=== PATIENT | male | born 2000 ===

== ENCOUNTER 2024-02-18 14:23 | Inpatient (IN) | payer MEDICAID ==
[~2024-02-18] VITALS: Ht 188 cm; Wt 123.0 kg
[2024-02-18] MEDS: SODIUM CHLORIDE 0.9% 2,000 ML IV ONE ×2 (15:21→17:22)
[2024-02-18] MEDS: IBUPROFEN 600 MG TABLET PO ONE (15:33)
[2024-02-18] MEDS: ONDANSETRON HCL 4 MG/2 ML VIAL IVP ONE (15:33)
[2024-02-18] MEDS: ACETAMINOPHEN 500 MG TABLET PO ONE (15:33)
[2024-02-18 15:59] LABS: CALCIUM, TOTAL 8.6 mg/dL (8.8-10.5); CREATININE 1.6 mg/dL (0.60-1.30); POTASSIUM 3.7 mmol/L (3.5-5.1)
[2024-02-18 16:00] LABS: BASOPHILS % (AUTO) 0.1 % (0.0-2.0); EOSINOPHILS % (AUTO) 0.1 % (1.0-6.0); HEMATOCRIT 52.1 % (41-53); HEMOGLOBIN 17.6 g/dL (13.5-17.5); LYMPHOCYTES # (AUTO) 0.4 K/uL (1.0-4.8); LYMPHOCYTES % (AUTO) 2.1 % (22.0-44.0); MEAN CORPUSCULAR HEMOGLOBIN 27.8 pg (26.0-34.0); MEAN CORPUSCULAR HGB CONC 33.8 G/dL (31.0-37.0); MEAN CORPUSCULAR VOLUME 82 fL (80-100); MONOCYTES # (AUTO) 1.6 K/uL (0.1-1.0); MONOCYTES % (AUTO) 8.5 % (2.0-9.0); NEUTROPHILS # (AUTO) 17.3 K/uL (1.8-7.7); PLATELET COUNT (AUTO) 267 K/uL (150-450); RED BLOOD CELL COUNT(AUTO) 6.33 MIL/uL (4.50-5.90); RED CELL DISTRIBUTION WIDTH 13.9 % (11.5-14.5); WHITE BLOOD COUNT (AUTO) 19.4 K/uL (4.5-11.0)
[2024-02-18 16:07] LABS: NEUTROPHILS % (AUTO) 89.2 % (40.0-70.0)
[2024-02-18 16:11] LABS: COVID AG,FIA SOURCE NASAL SWAB
[2024-02-18 16:32] LABS: SARS-COV2 (COVID) ANTIGEN,FIA Negative (Negative)
[2024-02-18 16:34] LABS: INFLUENZA TYPE A NEGATIVE FOR TYPE A (NEGATIVE); INFLUENZA TYPE B NEGATIVE FOR TYPE B (NEGATIVE)
[2024-02-18] MEDS ORDERED: IOHEXOL 350 MG/ML 100 ML VIAL ONE (18:25)
[2024-02-18] MEDS ORDERED: SODIUM CHLORIDE 0.9% 100 ML ONE (18:26)
[2024-02-18] MEDS ORDERED: 0.9% SODIUM CHLORIDE 10 ML SYRINGE IVP PRN (19:30)
[2024-02-18] MEDS: SODIUM CHLORIDE 0.9% 2,450 ML IV ONE (19:38)
[2024-02-18 20:01] LABS: ANION GAP 14 mmol/L (8-16); CALCIUM, TOTAL 7.6 mg/dL (8.8-10.5); CARBON DIOXIDE 20 mmol/L (22-29); CHLORIDE 101 mmol/L (98-107); CREATININE 1.38 mg/dL (0.60-1.30); GLOMERULAR FILTR. RATE CALC > 60 mL/min (>60); GLUCOSE,RANDOM 130 mg/dL (70-110); POTASSIUM 3.5 mmol/L (3.5-5.1); SODIUM SERUM 135 mmol/L (136-145); UREA NITROGEN, BLOOD 18 mg/dL (7-18)
[2024-02-18] MEDS: PIPERACILLIN/TAZO 3.375 GM/D5W 50 ML IV SCH (20:01)
[2024-02-18 20:06] LABS: ALANINE AMINOTRANSFERASE 44 U/L (12-78); ALBUMIN 2.3 g/dL (3.4-5.0); ALKALINE PHOSPHATASE 51 U/L (46-116); ASPARTATE AMINOTRANSFERASE 13 U/L (15-37); BILIRUBIN,TOTAL 2.1 mg/dL (0.1-1.0); TOTAL PROTEIN, SERUM 5.8 g/dL (6.4-8.2)
[2024-02-18 20:26] LABS: INR 1.5 (0.9-1.1); PROTHROMBIN TIME 15.5 SEC (9.4-11.6)
[2024-02-18 21:07] LABS: APPEARANCE,URINE CLEAR (CLEAR); BILIRUBIN,URINE NEGATIVE (NEGATIVE); COLOR,URINE YELLOW (YELLOW); GLUCOSE, URINE (UA) NEGATIVE (NEGATIVE); KETONES,URINE NEGATIVE (NEGATIVE); LEUKOCYTE ESTERASE ,URINE NEGATIVE (NEGATIVE); NITRATE,URINE NEGATIVE (NEGATIVE); OCCULT BLOOD,URINE NEGATIVE (NEGATIVE); PH,URINE 6.5 (5.0-8.0); PROTEIN,URINE 30-70 mg/dL (NEGATIVE)
[2024-02-18 21:11] LABS: SPECIFIC GRAVITIY, URINE > 1.050 (1.003-1.030)
[2024-02-18] MEDS ORDERED: ZOLPIDEM TARTRATE 5 MG TABLET PO PRN (21:15)
[2024-02-18] MEDS ORDERED: BISACODYL 10 MG RECTAL RECTAL SUPPOSITORY PR PRN (21:15)
[2024-02-18] MEDS ORDERED: MAGNESIUM HYDROXIDE SUSPENSION 30 ML UDCUP PO PRN (21:15)
[2024-02-18] MEDS ORDERED: ONDANSETRON HCL 4 MG/2 ML VIAL IVP PRN (21:15)
[2024-02-18] MEDS ORDERED: ALBUTEROL SULFATE 2.5 MG/0.5 ML NEB SOLUTION NEB PRN (21:15)
[2024-02-18] MEDS ORDERED: PIPERACILLIN/TAZO 3.375 GM/D5W 50 ML IV SCH (21:15)
[2024-02-18] MEDS ORDERED: IPRATROPIUM BROMIDE 0.5 MG/2.5 ML NEB SOLUTION NEB PRN (21:15)
[2024-02-19] MEDS: SODIUM CHLORIDE 0.9% 1,000 ML IV SCH (01:03)
[2024-02-19] MEDS: MORPHINE SULFATE 2 MG/ML SYRINGE IVP PRN (03:55)
[2024-02-19 06:26] LABS: BASOPHILS % (AUTO) 0.1 % (0.0-2.0); EOSINOPHILS % (AUTO) 0.2 % (1.0-6.0); HEMATOCRIT 46.1 % (41-53); HEMOGLOBIN 15.6 g/dL (13.5-17.5); LYMPHOCYTES # (AUTO) 0.5 K/uL (1.0-4.8); LYMPHOCYTES % (AUTO) 2.9 % (22.0-44.0); MEAN CORPUSCULAR HGB CONC 33.9 G/dL (31.0-37.0); MEAN CORPUSCULAR VOLUME 83 fL (80-100); MONOCYTES # (AUTO) 0.9 K/uL (0.1-1.0); MONOCYTES % (AUTO) 5.3 % (2.0-9.0); NEUTROPHILS # (AUTO) 15.6 K/uL (1.8-7.7); PLATELET COUNT (AUTO) 173 K/uL (150-450); RED BLOOD CELL COUNT(AUTO) 5.59 MIL/uL (4.50-5.90); RED CELL DISTRIBUTION WIDTH 14.4 % (11.5-14.5)
[2024-02-19 06:32] LABS: NEUTROPHILS % (AUTO) 91.5 % (40.0-70.0)
[2024-02-19 06:39] LABS: ANION GAP 13 mmol/L (8-16); CALCIUM, TOTAL 7.6 mg/dL (8.8-10.5); CARBON DIOXIDE 22 mmol/L (22-29); CHLORIDE 104 mmol/L (98-107); CREATININE 1.07 mg/dL (0.60-1.30); GLOMERULAR FILTR. RATE CALC > 60 mL/min (>60); GLUCOSE,RANDOM 148 mg/dL (70-110); POTASSIUM 3.9 mmol/L (3.5-5.1); SODIUM SERUM 139 mmol/L (136-145); UREA NITROGEN, BLOOD 18 mg/dL (7-18)
[2024-02-19] MEDS: PANTOPRAZOLE SODIUM 40 MG/VIAL IVP SCH (08:07)
[2024-02-19] MEDS: DOCUSATE SODIUM 100 MG CAPSULE PO SCH (08:27)
[2024-02-19 16:00] VITALS: BP 122/74; PULSE 147; RESP 18; TEMP 99.8; O2SAT 100
[2024-02-19] MEDS: ACETAMINOPHEN 325 MG TABLET PO PRN (18:58)
[2024-02-19 20:34] VITALS: BP 110/51; PULSE 118; RESP 19; TEMP 98.5; O2SAT 95
[2024-02-20 00:14] VITALS: BP 117/48; PULSE 111; RESP 18; TEMP 98.6; O2SAT 97
[2024-02-20 05:26] VITALS: BP 118/74; PULSE 115; RESP 18; TEMP 99.5; O2SAT 94
[2024-02-20 07:17] VITALS: BP 119/66; PULSE 117; RESP 18; TEMP 99.1; O2SAT 96
[2024-02-20 11:17] VITALS: BP 116/60; PULSE 112; RESP 18; TEMP 98; O2SAT 95
[2024-02-20 15:25] VITALS: BP 113/72; PULSE 101; RESP 18; TEMP 101.5; O2SAT 97
[2024-02-20 15:47] LABS: BASOPHILS % (AUTO) 0.2 % (0.0-2.0); EOSINOPHILS % (AUTO) 0.1 % (1.0-6.0); HEMATOCRIT 41.6 % (41-53); HEMOGLOBIN 13.7 g/dL (13.5-17.5); LYMPHOCYTES # (AUTO) 0.9 K/uL (1.0-4.8); LYMPHOCYTES % (AUTO) 5.1 % (22.0-44.0); MEAN CORPUSCULAR HEMOGLOBIN 27.6 pg (26.0-34.0); MEAN CORPUSCULAR VOLUME 84 fL (80-100); MONOCYTES # (AUTO) 1.1 K/uL (0.1-1.0); MONOCYTES % (AUTO) 6.4 % (2.0-9.0); NEUTROPHILS # (AUTO) 15.1 K/uL (1.8-7.7); PLATELET COUNT (AUTO) 217 K/uL (150-450); RED BLOOD CELL COUNT(AUTO) 4.97 MIL/uL (4.50-5.90); RED CELL DISTRIBUTION WIDTH 14.6 % (11.5-14.5); WHITE BLOOD COUNT (AUTO) 17.1 K/uL (4.5-11.0)
[2024-02-20 15:48] LABS: NEUTROPHILS % (AUTO) 88.2 % (40.0-70.0)
[2024-02-20 15:56] LABS: ANION GAP 11 mmol/L (8-16); CALCIUM, TOTAL 8.3 mg/dL (8.8-10.5); CARBON DIOXIDE 25 mmol/L (22-29); CHLORIDE 100 mmol/L (98-107); CREATININE 0.71 mg/dL (0.60-1.30); GLOMERULAR FILTR. RATE CALC > 60 mL/min (>60); GLUCOSE,RANDOM 82 mg/dL (70-110); POTASSIUM 3.1 mmol/L (3.5-5.1); SODIUM SERUM 136 mmol/L (136-145); UREA NITROGEN, BLOOD 11 mg/dL (7-18)
[2024-02-20 16:05] LABS: ALANINE AMINOTRANSFERASE 38 U/L (12-78); ALBUMIN 2.1 g/dL (3.4-5.0); ALKALINE PHOSPHATASE 68 U/L (46-116); ASPARTATE AMINOTRANSFERASE 25 U/L (15-37); BILIRUBIN,TOTAL 1.6 mg/dL (0.1-1.0); RBC MORPHOLOGY COMMENT NORMAL RBC MORPH; TOTAL PROTEIN, SERUM 6.5 g/dL (6.4-8.2)
[2024-02-20 20:37] VITALS: BP 113/53; PULSE 102; RESP 18; TEMP 98.3; O2SAT 97
[2024-02-21] VITALS (7 sets, daily range): BP systolic 128–149; BP diastolic 63–91; PULSE 107–113; RESP 17–19; TEMP 98.5–99.4; O2SAT 94–96
[2024-02-21] MEDS ORDERED: IOHEXOL 350 MG/ML 100 ML VIAL ONE (07:54)
[2024-02-21] MEDS ORDERED: SODIUM CHLORIDE 0.9% 100 ML ONE (07:54)
[2024-02-21] MEDS ORDERED: IOHEXOL 9 MG/ML 500 ML BOTTLE ONE (07:54)
[2024-02-21] MEDS: FAMOTIDINE 20 MG TABLET PO ONE (08:12)
[2024-02-21] MEDS: DiphenhydrAMINE HCL 50 MG/ML VIAL IVP ONE (08:12)
[2024-02-21] MEDS: POTASSIUM CHLORIDE 20 MEQ ER TABLET PO PRN (12:50)
[2024-02-21] MEDS: VANCOMYCIN 1.75GM/WATER(PEG) 350 ML IV ONE (16:24)
[2024-02-21] MEDS: POTASSIUM CHL 10 MEQ/WATER 50 ML IV PRN (20:34)
[2024-02-22] MEDS: VANCOMYCIN 1.25 GM/WATER(PEG) 250 ML IV SCH (00:30)
[2024-02-22 03:51] VITALS: BP 134/87; PULSE 102; RESP 18; TEMP 98.6; O2SAT 97
[2024-02-22 07:10] LABS: INR 1.4 (0.9-1.1); PROTHROMBIN TIME 14.1 SEC (9.4-11.6)
[2024-02-22 07:13] LABS: BASOPHILS % (AUTO) 0.2 % (0.0-2.0); EOSINOPHILS % (AUTO) 0.2 % (1.0-6.0); HEMATOCRIT 39.7 % (41-53); HEMOGLOBIN 13.3 g/dL (13.5-17.5); LYMPHOCYTES # (AUTO) 0.9 K/uL (1.0-4.8); LYMPHOCYTES % (AUTO) 5.2 % (22.0-44.0); MEAN CORPUSCULAR HEMOGLOBIN 27.4 pg (26.0-34.0); MEAN CORPUSCULAR HGB CONC 33.4 G/dL (31.0-37.0); MEAN CORPUSCULAR VOLUME 82 fL (80-100); MONOCYTES # (AUTO) 1.7 K/uL (0.1-1.0); MONOCYTES % (AUTO) 10.2 % (2.0-9.0); NEUTROPHILS # (AUTO) 14.3 K/uL (1.8-7.7); NEUTROPHILS % (AUTO) 84.2 % (40.0-70.0); PLATELET COUNT (AUTO) 260 K/uL (150-450); RED BLOOD CELL COUNT(AUTO) 4.83 MIL/uL (4.50-5.90); RED CELL DISTRIBUTION WIDTH 14.2 % (11.5-14.5)
[2024-02-22 07:22] LABS: ALANINE AMINOTRANSFERASE 29 U/L (12-78); ALBUMIN 1.8 g/dL (3.4-5.0); ALKALINE PHOSPHATASE 66 U/L (46-116); ANION GAP 13 mmol/L (8-16); ASPARTATE AMINOTRANSFERASE 28 U/L (15-37); BILIRUBIN,TOTAL 1.4 mg/dL (0.1-1.0); CALCIUM, TOTAL 8.1 mg/dL (8.8-10.5); CARBON DIOXIDE 21 mmol/L (22-29); CHLORIDE 102 mmol/L (98-107); CREATININE 0.47 mg/dL (0.60-1.30); GLOMERULAR FILTR. RATE CALC > 60 mL/min (>60); GLUCOSE,RANDOM 97 mg/dL (70-110); POTASSIUM 3.6 mmol/L (3.5-5.1); SODIUM SERUM 136 mmol/L (136-145); TOTAL PROTEIN, SERUM 5.6 g/dL (6.4-8.2); UREA NITROGEN, BLOOD 9 mg/dL (7-18)
[2024-02-22 08:00] VITALS: BP 130/69; PULSE 93; RESP 22; TEMP 99.8; O2SAT 96
[2024-02-22] MEDS ORDERED: SODIUM CHLORIDE 0.9% 100 ML ONE (09:43)
[2024-02-22] MEDS ORDERED: IOHEXOL 350 MG/ML 100 ML VIAL ONE (09:43)
[2024-02-22] MEDS ORDERED: LIDOCAINE/PF 1% 30 ML VIAL ONE (09:58)
[2024-02-22] MEDS ORDERED: FentaNYL CITRATE PF 100 MCG/2 ML VIAL ONE (09:58)
[2024-02-22] MEDS ORDERED: MIDAZOLAM HCL 2 MG/2 ML VIAL ONE (09:58)
[2024-02-22] MEDS ORDERED: DiphenhydrAMINE HCL 50 MG/ML VIAL ONE (10:03)
[2024-02-22 13:00] VITALS: BP 135/73; PULSE 90; RESP 18; TEMP 98.9; O2SAT 96
[2024-02-22] MEDS: HYDROCODONE/ACETAMINOPHEN 5-325 MG TABLET PO PRN (13:18)
[2024-02-22 16:00] VITALS: BP 147/85; PULSE 108; RESP 18; TEMP 98; O2SAT 95
[2024-02-22 19:38] VITALS: BP 134/79; PULSE 114; RESP 19; TEMP 99.8; O2SAT 98
[2024-02-23] VITALS: BP 138/89; PULSE 102; RESP 20; TEMP 99.6; O2SAT 93
[2024-02-23 05:52] VITALS: BP 142/77; PULSE 100; RESP 18; TEMP 98.4; O2SAT 94
[2024-02-23 09:00] VITALS: BP 140/90; PULSE 99; RESP 18; TEMP 98.4; O2SAT 95
[2024-02-23 12:46] VITALS: BP 140/90; PULSE 99; RESP 18; TEMP 98.4; O2SAT 95
[2024-02-23] MEDS: FentaNYL CITRATE PF 100 MCG/2 ML VIAL IVP ONE ×2 (15:26→15:27)
[2024-02-23] MEDS: MIDAZOLAM HCL 2 MG/2 ML VIAL IVP ONE (15:26)
[2024-02-23] MEDS: LIDOCAINE 1% 30 ML/SOD BICARB 8.4% 4 ML SQ ONE (15:38)
[2024-02-23 16:55] VITALS: BP 145/72; PULSE 105; RESP 18; TEMP 98.2; O2SAT 94
[2024-02-23 20:00] VITALS: BP 131/67; PULSE 106; RESP 18; TEMP 98.9; O2SAT 96
[2024-02-23 21:59] LABS: C.DIFF GDH ANTIGEN, Stool Negative (Negative)
[2024-02-23 22:00] LABS: C.DIFF TOXINS A&B, Stool Negative (Negative)
[2024-02-24 04:00] VITALS: BP 134/75; PULSE 112; RESP 18; TEMP 99.3; O2SAT 96
[2024-02-24 07:41] LABS: BASOPHILS % (AUTO) 0.2 % (0.0-2.0); EOSINOPHILS % (AUTO) 0.5 % (1.0-6.0); HEMATOCRIT 38.9 % (41-53); HEMOGLOBIN 13.3 g/dL (13.5-17.5); LYMPHOCYTES # (AUTO) 1.1 K/uL (1.0-4.8); LYMPHOCYTES % (AUTO) 5.9 % (22.0-44.0); MEAN CORPUSCULAR HEMOGLOBIN 27.9 pg (26.0-34.0); MEAN CORPUSCULAR HGB CONC 34.3 G/dL (31.0-37.0); MEAN CORPUSCULAR VOLUME 81 fL (80-100); MONOCYTES # (AUTO) 1.9 K/uL (0.1-1.0); MONOCYTES % (AUTO) 10.1 % (2.0-9.0); NEUTROPHILS # (AUTO) 15.8 K/uL (1.8-7.7); NEUTROPHILS % (AUTO) 83.3 % (40.0-70.0); PLATELET COUNT (AUTO) 309 K/uL (150-450); RED BLOOD CELL COUNT(AUTO) 4.79 MIL/uL (4.50-5.90); RED CELL DISTRIBUTION WIDTH 14.3 % (11.5-14.5); WHITE BLOOD COUNT (AUTO) 18.9 K/uL (4.5-11.0)
[2024-02-24 07:59] LABS: ALANINE AMINOTRANSFERASE 27 U/L (12-78); ALBUMIN 1.6 g/dL (3.4-5.0); ALKALINE PHOSPHATASE 65 U/L (46-116); ANION GAP 9 mmol/L (8-16); ASPARTATE AMINOTRANSFERASE 25 U/L (15-37); BILIRUBIN,TOTAL 1.3 mg/dL (0.1-1.0); CALCIUM, TOTAL 7.8 mg/dL (8.8-10.5); CARBON DIOXIDE 26 mmol/L (22-29); CHLORIDE 98 mmol/L (98-107); CREATININE 0.55 mg/dL (0.60-1.30); GLOMERULAR FILTR. RATE CALC > 60 mL/min (>60); GLUCOSE,RANDOM 97 mg/dL (70-110); SODIUM SERUM 133 mmol/L (136-145); UREA NITROGEN, BLOOD 4 mg/dL (7-18)
[2024-02-24 08:00] VITALS: BP 141/83; PULSE 99; RESP 18; TEMP 97.8; O2SAT 94
[2024-02-24 08:02] LABS: POTASSIUM 2.8 mmol/L (3.5-5.1)
[2024-02-24 12:00] VITALS: BP 128/75; PULSE 97; RESP 16; TEMP 98.8; O2SAT 96
[2024-02-24 15:31] LABS: ALANINE AMINOTRANSFERASE 30 U/L (12-78); ALBUMIN 1.7 g/dL (3.4-5.0); ALKALINE PHOSPHATASE 67 U/L (46-116); ANION GAP 8 mmol/L (8-16); ASPARTATE AMINOTRANSFERASE 32 U/L (15-37); BILIRUBIN,TOTAL 1.1 mg/dL (0.1-1.0); CALCIUM, TOTAL 7.9 mg/dL (8.8-10.5); CARBON DIOXIDE 27 mmol/L (22-29); CHLORIDE 99 mmol/L (98-107); CREATININE 0.46 mg/dL (0.60-1.30); GLOMERULAR FILTR. RATE CALC > 60 mL/min (>60); GLUCOSE,RANDOM 102 mg/dL (70-110); POTASSIUM 3.4 mmol/L (3.5-5.1); SODIUM SERUM 134 mmol/L (136-145); TOTAL PROTEIN, SERUM 5.9 g/dL (6.4-8.2); UREA NITROGEN, BLOOD 4 mg/dL (7-18)
[2024-02-24 16:00] VITALS: BP 154/75; PULSE 98; RESP 18; TEMP 98.7; O2SAT 94
[2024-02-24 19:35] VITALS: BP 141/88; PULSE 106; RESP 18; TEMP 99.3; O2SAT 95
[2024-02-24 23:32] VITALS: BP 142/77; PULSE 105; RESP 18; TEMP 98.8; O2SAT 100
[2024-02-25 03:41] VITALS: BP 150/83; PULSE 100; RESP 18; TEMP 99.1; O2SAT 98
[2024-02-25] MEDS: POTASSIUM CHLORIDE 10% 40 MEQ/30 ML LIQUID UDCUP PO ONE (05:06)
[2024-02-25 06:12] VITALS: BP 141/71; PULSE 92; RESP 18; TEMP 98.6; O2SAT 97
[2024-02-25 07:44] LABS: BASOPHILS % (AUTO) 0.7 % (0.0-2.0); EOSINOPHILS % (AUTO) 0.5 % (1.0-6.0); HEMATOCRIT 36.6 % (41-53); HEMOGLOBIN 12.4 g/dL (13.5-17.5); LYMPHOCYTES # (AUTO) 1.1 K/uL (1.0-4.8); LYMPHOCYTES % (AUTO) 5.8 % (22.0-44.0); MEAN CORPUSCULAR HEMOGLOBIN 27.9 pg (26.0-34.0); MEAN CORPUSCULAR HGB CONC 33.8 G/dL (31.0-37.0); MEAN CORPUSCULAR VOLUME 83 fL (80-100); MONOCYTES # (AUTO) 1.6 K/uL (0.1-1.0); MONOCYTES % (AUTO) 8.3 % (2.0-9.0); NEUTROPHILS % (AUTO) 84.7 % (40.0-70.0); PLATELET COUNT (AUTO) 310 K/uL (150-450); RED BLOOD CELL COUNT(AUTO) 4.44 MIL/uL (4.50-5.90); RED CELL DISTRIBUTION WIDTH 14.1 % (11.5-14.5); WHITE BLOOD COUNT (AUTO) 18.9 K/uL (4.5-11.0)
[2024-02-25 08:04] VITALS: BP 123/59; PULSE 100; RESP 20; TEMP 98.8; O2SAT 99
[2024-02-25 15:59] VITALS: BP 127/75; PULSE 97; RESP 20; TEMP 98; O2SAT 96
[2024-02-25 19:37] VITALS: BP 130/71; PULSE 104; RESP 20; TEMP 100; O2SAT 94
[2024-02-25] MEDS: AMPICILLIN SODIUM/SULBACTAM NA 3 GM in SODIUM CHLORIDE 0.9% 100 ML IV SCH (20:10)
[2024-02-25 20:59] VITALS: TEMP 99.2
[2024-02-26 05:09] VITALS: BP 134/76; PULSE 103; RESP 20; TEMP 98.9; O2SAT 97
[2024-02-26 07:51] VITALS: BP 127/78; PULSE 93; RESP 20; TEMP 98.9; O2SAT 97
[2024-02-26] MEDS ORDERED: IOHEXOL 9 MG/ML 500 ML BOTTLE ONE (08:07)
[2024-02-26 08:11] LABS: BASOPHILS % (AUTO) 0.5 % (0.0-2.0); EOSINOPHILS % (AUTO) 0.7 % (1.0-6.0); LYMPHOCYTES # (AUTO) 1.3 K/uL (1.0-4.8); LYMPHOCYTES % (AUTO) 7.3 % (22.0-44.0); MEAN CORPUSCULAR HEMOGLOBIN 27.4 pg (26.0-34.0); MEAN CORPUSCULAR HGB CONC 33.2 G/dL (31.0-37.0); MEAN CORPUSCULAR VOLUME 83 fL (80-100); MONOCYTES # (AUTO) 1.4 K/uL (0.1-1.0); MONOCYTES % (AUTO) 7.6 % (2.0-9.0); NEUTROPHILS # (AUTO) 15.5 K/uL (1.8-7.7); NEUTROPHILS % (AUTO) 83.9 % (40.0-70.0); PLATELET COUNT (AUTO) 343 K/uL (150-450); RED BLOOD CELL COUNT(AUTO) 4.73 MIL/uL (4.50-5.90); RED CELL DISTRIBUTION WIDTH 14.4 % (11.5-14.5); WHITE BLOOD COUNT (AUTO) 18.5 K/uL (4.5-11.0)
[2024-02-26 08:12] LABS: RBC MORPHOLOGY COMMENT NORMAL RBC MORPH
[2024-02-26 08:30] LABS: ALANINE AMINOTRANSFERASE 26 U/L (12-78); ALKALINE PHOSPHATASE 82 U/L (46-116); ANION GAP 11 mmol/L (8-16); ASPARTATE AMINOTRANSFERASE 28 U/L (15-37); BILIRUBIN,TOTAL 1.1 mg/dL (0.1-1.0); CALCIUM, TOTAL 7.8 mg/dL (8.8-10.5); CARBON DIOXIDE 25 mmol/L (22-29); CHLORIDE 101 mmol/L (98-107); CREATININE 0.51 mg/dL (0.60-1.30); GLOMERULAR FILTR. RATE CALC > 60 mL/min (>60); GLUCOSE,RANDOM 92 mg/dL (70-110); POTASSIUM 3.1 mmol/L (3.5-5.1); SODIUM SERUM 137 mmol/L (136-145); TOTAL PROTEIN, SERUM 6.5 g/dL (6.4-8.2); UREA NITROGEN, BLOOD 3 mg/dL (7-18)
[2024-02-26] MEDS ORDERED: IOHEXOL 350 MG/ML 100 ML VIAL ONE (10:36)
[2024-02-26] MEDS ORDERED: SODIUM CHLORIDE 0.9% 100 ML ONE (10:36)
[2024-02-26 15:14] VITALS: BP 132/76; PULSE 96; RESP 20; TEMP 98.7; O2SAT 95
[2024-02-26 16:37] LABS: C.DIFF GDH ANTIGEN, Stool Negative (Negative); C.DIFF TOXINS A&B, Stool Negative (Negative)
[2024-02-26 19:30] VITALS: BP 136/72; PULSE 100; RESP 19; TEMP 99.1; O2SAT 95
[2024-02-27] VITALS (10 sets, daily range): BP systolic 119–141; BP diastolic 74–84; PULSE 78–110; RESP 17–20; TEMP 98–100; O2SAT 95–100
[2024-02-27 07:06] LABS: BASOPHILS % (AUTO) 0.2 % (0.0-2.0); EOSINOPHILS % (AUTO) 0.7 % (1.0-6.0); HEMATOCRIT 36.3 % (41-53); HEMOGLOBIN 12.2 g/dL (13.5-17.5); LYMPHOCYTES # (AUTO) 1.1 K/uL (1.0-4.8); LYMPHOCYTES % (AUTO) 6.5 % (22.0-44.0); MEAN CORPUSCULAR HEMOGLOBIN 27.8 pg (26.0-34.0); MEAN CORPUSCULAR HGB CONC 33.7 G/dL (31.0-37.0); MEAN CORPUSCULAR VOLUME 83 fL (80-100); MONOCYTES # (AUTO) 1.4 K/uL (0.1-1.0); MONOCYTES % (AUTO) 8.1 % (2.0-9.0); NEUTROPHILS # (AUTO) 14.4 K/uL (1.8-7.7); NEUTROPHILS % (AUTO) 84.5 % (40.0-70.0); PLATELET COUNT (AUTO) 298 K/uL (150-450); WHITE BLOOD COUNT (AUTO) 17.1 K/uL (4.5-11.0)
[2024-02-27 07:14] LABS: ANION GAP 9 mmol/L (8-16); CARBON DIOXIDE 25 mmol/L (22-29); CHLORIDE 101 mmol/L (98-107); GLOMERULAR FILTR. RATE CALC > 60 mL/min (>60); GLUCOSE,RANDOM 97 mg/dL (70-110); POTASSIUM 3.3 mmol/L (3.5-5.1); SODIUM SERUM 135 mmol/L (136-145); UREA NITROGEN, BLOOD 4 mg/dL (7-18)
[2024-02-27] MEDS ORDERED: SODIUM CHLORIDE 0.9% 0 ML IV ONE (09:12)
[2024-02-27] MEDS ORDERED: SODIUM CHLORIDE 0.9% 250 ML IV ONE (09:13)
[2024-02-27] MEDS ORDERED: MIDAZOLAM HCL 2 MG/2 ML VIAL ONE (10:55)
[2024-02-27] MEDS ORDERED: LIDOCAINE/PF 1% 30 ML VIAL ONE (10:55)
[2024-02-27] MEDS ORDERED: FentaNYL CITRATE PF 100 MCG/2 ML VIAL ONE (10:55)
[2024-02-27] MEDS: LIDOCAINE 1% 30 ML/SOD BICARB 8.4% 4 ML SQ ONE (11:40)
[2024-02-27] MEDS ORDERED: LIDOCAINE/PF 1% 5 ML VIAL ONE (12:34)
[2024-02-27] MEDS: LEVOFLOXACIN 750 MG/D5% WATER 150 ML IV SCH (16:37)
[2024-02-27] MEDS: FentaNYL CITRATE PF 100 MCG/2 ML VIAL IVP ONE ×2 (16:51)
[2024-02-27] MEDS: MIDAZOLAM HCL 2 MG/2 ML VIAL IVP ONE ×2 (16:51→16:52)
[2024-02-28 05:05] VITALS: BP 139/84; PULSE 85; RESP 18; TEMP 98.4; O2SAT 97
[2024-02-28 06:41] LABS: BASOPHILS % (AUTO) 0.3 % (0.0-2.0); HEMATOCRIT 37.3 % (41-53); HEMOGLOBIN 12.6 g/dL (13.5-17.5); LYMPHOCYTES # (AUTO) 0.9 K/uL (1.0-4.8); LYMPHOCYTES % (AUTO) 7.5 % (22.0-44.0); MEAN CORPUSCULAR HEMOGLOBIN 27.9 pg (26.0-34.0); MEAN CORPUSCULAR HGB CONC 33.7 G/dL (31.0-37.0); MEAN CORPUSCULAR VOLUME 83 fL (80-100); MONOCYTES # (AUTO) 1.1 K/uL (0.1-1.0); MONOCYTES % (AUTO) 8.9 % (2.0-9.0); NEUTROPHILS # (AUTO) 10.2 K/uL (1.8-7.7); NEUTROPHILS % (AUTO) 82.3 % (40.0-70.0); PLATELET COUNT (AUTO) 294 K/uL (150-450); RED BLOOD CELL COUNT(AUTO) 4.51 MIL/uL (4.50-5.90); RED CELL DISTRIBUTION WIDTH 14.1 % (11.5-14.5); WHITE BLOOD COUNT (AUTO) 12.4 K/uL (4.5-11.0)
[2024-02-28 08:31] VITALS: BP 136/86; PULSE 86; RESP 19; TEMP 98.3; O2SAT 97
[2024-02-28 16:53] VITALS: BP 139/81; PULSE 99; RESP 19; TEMP 99.3; O2SAT 96
[2024-02-28 20:47] VITALS: BP 127/69; PULSE 91; RESP 20; TEMP 98.6; O2SAT 96
[2024-02-29 04:32] VITALS: BP 138/84; PULSE 90; RESP 20; TEMP 98; O2SAT 96
[2024-02-29 08:36] VITALS: BP 140/81; PULSE 87; RESP 19; TEMP 98.1; O2SAT 98
[2024-02-29 17:15] VITALS: BP 142/79; PULSE 89; RESP 18; TEMP 98.3; O2SAT 97
[2024-02-29 19:43] VITALS: BP 141/72; PULSE 90; RESP 20; TEMP 99; O2SAT 96
[2024-03-01 05:11] VITALS: BP 131/75; PULSE 92; RESP 20; TEMP 98.5; O2SAT 96
[2024-03-01 08:08] LABS: BASOPHILS % (AUTO) 0.4 % (0.0-2.0); EOSINOPHILS % (AUTO) 1.4 % (1.0-6.0); HEMATOCRIT 38.3 % (41-53); LYMPHOCYTES # (AUTO) 1.1 K/uL (1.0-4.8); LYMPHOCYTES % (AUTO) 10.7 % (22.0-44.0); MEAN CORPUSCULAR HEMOGLOBIN 28.2 pg (26.0-34.0); MEAN CORPUSCULAR VOLUME 83 fL (80-100); MONOCYTES % (AUTO) 9.8 % (2.0-9.0); NEUTROPHILS % (AUTO) 77.7 % (40.0-70.0); PLATELET COUNT (AUTO) 293 K/uL (150-450); RED BLOOD CELL COUNT(AUTO) 4.62 MIL/uL (4.50-5.90); WHITE BLOOD COUNT (AUTO) 10.3 K/uL (4.5-11.0)
[2024-03-01 08:45] VITALS: BP 129/78; PULSE 87; RESP 18; TEMP 97.8; O2SAT 96
[2024-03-01 15:23] VITALS: BP 139/87; PULSE 88; RESP 18; TEMP 97.6; O2SAT 95
[2024-03-01 19:52] VITALS: BP 125/65; PULSE 96; RESP 18; TEMP 98.6; O2SAT 95
[2024-03-02 04:30] VITALS: BP 116/81; PULSE 69; RESP 18; TEMP 98.9; O2SAT 99
[2024-03-02 07:28] VITALS: BP 119/73; PULSE 87; RESP 18; TEMP 97.8; O2SAT 95
[2024-03-02 14:37] VITALS: BP 127/68; PULSE 100; RESP 18; TEMP 98.3; O2SAT 95
[2024-03-02 19:56] VITALS: BP 119/73; PULSE 96; RESP 18; TEMP 98; O2SAT 96
[2024-03-03 04:47] VITALS: BP 121/72; PULSE 100; RESP 18; TEMP 98.5; O2SAT 98
[2024-03-03 07:50] VITALS: BP 127/73; PULSE 99; RESP 18; TEMP 98.1; O2SAT 98
[2024-03-03 08:00] VITALS: PULSE 86; RESP 18; O2SAT 98
[2024-03-03 15:49] VITALS: BP 123/71; PULSE 100; RESP 18; TEMP 98.4; O2SAT 96
[2024-03-03 19:58] VITALS: BP 120/72; PULSE 99; RESP 18; TEMP 98.2; O2SAT 98
[2024-03-04] MEDS ORDERED: SODIUM CHLORIDE 0.9% 500 ML IV ONE (03:18)
[2024-03-04 04:58] VITALS: BP 126/63; PULSE 91; RESP 18; TEMP 98.2; O2SAT 97
[2024-03-04 08:40] VITALS: BP 131/79; PULSE 98; RESP 18; TEMP 97.8; O2SAT 97
[2024-03-04] MEDS ORDERED: 0.9% SODIUM CHLORIDE 10 ML SYRINGE IVP ONE (15:38)
[2024-03-04] MEDS ORDERED: SODIUM CHLORIDE 0.9% 100 ML ONE (15:39)
[2024-03-04] MEDS ORDERED: IOHEXOL 350 MG/ML 100 ML VIAL ONE (15:39)
[2024-03-04 16:09] VITALS: BP 125/66; PULSE 94; RESP 18; TEMP 97.9; O2SAT 97
[2024-03-04 20:13] VITALS: BP 112/68; PULSE 100; RESP 18; TEMP 98.3; O2SAT 96
[2024-03-05 05:08] VITALS: BP 111/74; PULSE 95; RESP 18; TEMP 97.7; O2SAT 96
[2024-03-05 08:27] VITALS: BP 126/78; PULSE 77; RESP 21; TEMP 98.5; O2SAT 98
[2024-03-05] MEDS ORDERED: AMOX-457 PO (16:30)
[2024-03-05] MEDS ORDERED: LEVO750T68 PO (16:30)
[2024-03-05] MEDS: AMOX TR/POT CLAV 875 MG/125 MG TABLET PO ONE (17:58)
== END 2024-03-05 19:07 | disposition home health service (06) | DRG 710 ==
LOC: EMS 14:23 → EDH 21:33 → 5S 02-19 16:15 → 4E 02-25 05:37
PROVIDERS: ADMIT Hospitalist; ATTEND Hospitalist
PROC: 0D9J40Z Drainage of Appendix with Drainage Device, Percutaneous Endoscopic Approach (ICD-10-PCS; principal; 2024-02-22)
PROC: 0W9J30Z Drainage of Pelvic Cavity with Drainage Device, Percutaneous Approach (ICD-10-PCS; 2024-02-27)
PROC: 0W9G3ZZ Drainage of Peritoneal Cavity, Percutaneous Approach (ICD-10-PCS; 2024-02-27)
DX: A41.9 Sepsis, unspecified organism (principal); N17.9 Acute kidney failure, unspecified; K35.33 Acute appendicitis with perforation, localized peritonitis, and gangrene, with abscess; R18.8 Other ascites; K38.1 Appendicular concretions; E87.6 Hypokalemia; B96.20 Unspecified Escherichia coli [E. coli] as the cause of diseases classified elsewhere; R65.20 Severe sepsis without septic shock; J45.909 Unspecified asthma, uncomplicated; Z20.822 Contact with and (suspected) exposure to COVID-19; Z91.013 Allergy to seafood; E66.9 Obesity, unspecified; Z68.34 Body mass index [BMI] 34.0-34.9, adult
CPT/HCPCS: 71045; 74177; 77012; 80048; 80053; 81003; 83605; 84132; 84145; 85025; 85610; 85730; 87040; 87070; 87077; 87186; 87205; 87324; 87449; 87804; 93005; 93306; 99291; C9113; G0238; G0378; J0295; J1200; J1956; J2001; J2250; J2270; J2405; J2543; J3010; J3480; J3490; J7030; J7040; J7050; 36415-L1; 36415-TC